=== PATIENT | female | born 1965 | race Caucasian/White ===

== ENCOUNTER → 2021-05-30 | Day surgery (SDC) | payer OTHER ==
[2021-05-28 08:50] LABS: BASOPHILS % 0.7 % (0.0-1.0); EOSINOPHILS # (AUTO) 0.1 (0.0-0.4); EOSINOPHILS % 3.2 % (0.0-6.0); HEMATOCRIT 32.6 % (34.2-44.1); LYMPHOCYTES # (AUTO) 1.6 (1.0-3.2); LYMPHOCYTES % 39.7 % (18.0-39.1); MEAN CORPUSCULAR HEMOGLOBIN 31.5 pg (28-32); MEAN CORPUSCULAR HGB CONC 30.7 g/dL (31-35); MEAN CORPUSCULAR VOLUME 102.8 fL (81-99); MONOCYTES # (AUTO) 0.5 (0.2-0.8); MONOCYTES % 11.2 % (4.4-11.3); NEUTROPHILS # (AUTO) 1.8 (2.1-6.9); PLATELET COUNT 283 x10e3/uL (140-360); RED BLOOD COUNT 3.17 x10e6/uL (3.6-5.1); RED CELL DISTRIBUTION WIDTH 13.3 % (11.7-14.4)
[2021-05-28 09:09] LABS: ANION GAP 11.3 mmol/L (8-16); CREATININE, SERUM 0.79 mg/dL (0.57-1.11); POTASSIUM 4.3 mmol/L (3.5-5.1)
[~2021-05-30] MED LIST: ACETAMINOPHEN 1000 MG/100 ML 100 ML IV ONE; BUPIVACAINE 0.25% 30ML SDV ONE; CYMBALTA30 MG; DEXAMETHASONE SOD PHOS INJ 4 MG/ML SDV ONE; ETODOLAC300 MG PO; FENTANYL CITRATE/PF 100MCG/2 ML INJ ONE; KETOROLAC TROMETHAMINE 30 MG/ML VIAL ONE; NEOSTIGMINE 1 MG/ML 10ML VIAL ONE; PLAQUENIL200 MG PO; SIMVASTATIN20 MG PO; SODIUM CHLORIDE 0.9% 50ML 100 ML ONE; TRAZODONE HCL50 MG PO; TREXIMET 85-501 EACH
[2021-05-30 11:55] VITALS: BP 146/81
== END | disposition home or self-care (01) ==
LOC: OR 06:37
PROVIDERS: ATTEND Podiatrist Foot Surgery
DX: M20.12 Hallux valgus (acquired), left foot (principal); M20.42 Other hammer toe(s) (acquired), left foot; M72.2 Plantar fascial fibromatosis; M19.072 Primary osteoarthritis, left ankle and foot; M06.9 Rheumatoid arthritis, unspecified; Z88.6 Allergy status to analgesic agent; Z01.810 Encounter for preprocedural cardiovascular examination; Z01.812 Encounter for preprocedural laboratory examination; Z01.818 Encounter for other preprocedural examination; Z20.822 Contact with and (suspected) exposure to COVID-19
CPT/HCPCS: 28285; 28296; 29893; 36415; 71046; 80048; 85025; 93005; C1713; J0131; J0690; J1100; J1885; J2710; J3010; U0002; 76000

== ENCOUNTER → 2021-07-11 | Day surgery (SDC) | payer OTHER ==
[2021-07-09 16:04] LABS: BASOPHILS % 0.4 % (0.0-1.0); EOSINOPHILS # (AUTO) 0.1 (0.0-0.4); EOSINOPHILS % 1.4 % (0.0-6.0); HEMATOCRIT 38.7 % (34.2-44.1); LYMPHOCYTES # (AUTO) 1.4 (1.0-3.2); MEAN CORPUSCULAR HEMOGLOBIN 31.5 pg (28-32); MEAN CORPUSCULAR VOLUME 101.6 fL (81-99); MONOCYTES # (AUTO) 0.6 (0.2-0.8); MONOCYTES % 10.9 % (4.4-11.3); NEUTROPHILS # (AUTO) 3.6 (2.1-6.9); NEUTROPHILS % 63.1 % (38.7-80.0); PLATELET COUNT 265 x10e3/uL (140-360); RED BLOOD COUNT 3.81 x10e6/uL (3.6-5.1); RED CELL DISTRIBUTION WIDTH 13.9 % (11.7-14.4)
[2021-07-09 16:23] LABS: ANION GAP 15.2 mmol/L (8-16); CALCIUM 8.9 mg/dL (8.4-10.2); CREATININE, SERUM 1.06 mg/dL (0.57-1.11); POTASSIUM 4.2 mmol/L (3.5-5.1)
[~2021-07-11] MED LIST changes: -ACETAMINOPHEN 1000 MG/100 ML 100 ML IV ONE; +AZITHROMYCIN250 MG PO; -BUPIVACAINE 0.25% 30ML SDV ONE; +BUPIVACAINE HCL 0.5% INJ 30 ML VIAL INJ ONE; +EPHEDRINE SULFATE INJ 50 MG/ML VIAL ONE; +LIDOCAINE HCL 2% LOCAL INJ 5 ML SDV VIAL INJ ONE; +MIDAZOLAM HCL 2 MG/2 ML VIAL ONE; +ONDANSETRON HCL INJ 2MG/ML 2ML 2 MG/ML VIAL ONE; +POVIDONE IODINE 0.05% 0.05 % ML PO ONE; +PROPOFOL IV EMULSION 10 MG/ML 20 ML VIAL ONE; +SEVOFLURANE INHAL SOLN 250 ML PEN BTL ONE
[2021-07-11 11:36] VITALS: BP 135/80
== END | disposition home or self-care (01) ==
LOC: OR 06:51
PROVIDERS: ATTEND Podiatrist Foot Surgery
DX: T84.84XA Pain due to internal orthopedic prosthetic devices, implants and grafts, initial encounter (principal); M20.11 Hallux valgus (acquired), right foot; M19.071 Primary osteoarthritis, right ankle and foot; M72.2 Plantar fascial fibromatosis; F41.9 Anxiety disorder, unspecified; Y83.8 Other surgical procedures as the cause of abnormal reaction of the patient, or of later complication, without mention of misadventure at the time of the procedure; Z88.6 Allergy status to analgesic agent; Z01.812 Encounter for preprocedural laboratory examination; Z01.818 Encounter for other preprocedural examination; Z20.822 Contact with and (suspected) exposure to COVID-19; Z79.899 Other long term (current) drug therapy; Z86.16 Personal history of COVID-19; Z87.01 Personal history of pneumonia (recurrent)
CPT/HCPCS: 20680; 28292; 29893; 36415; 71046; 80048; 85025; J0690; J1100; J1885; J2001; J2250; J2405; J2704; J2710; J3010; U0002; 76000

== ENCOUNTER → 2023-08-27 | Day surgery (SDC) | payer OTHER ==
[~2023-08-27] MED LIST changes: +BUPIVACAINE HCL 0.5% 10ML MPF VIAL INJ ONE; -BUPIVACAINE HCL 0.5% INJ 30 ML VIAL INJ ONE; +FLONASE ALLERG9.9 ML INH; +GLYCOPYRROLATE INJ 0.2 MG/ML VIAL ONE; +LACTATED RINGER'S 1,000 ML ONE; +NEURONTIN400 MG PO; -POVIDONE IODINE 0.05% 0.05 % ML PO ONE; -SODIUM CHLORIDE 0.9% 50ML 100 ML ONE; +WEGOVY1.7 MG/0.7
[2023-08-27] MEDS: FENTANYL CITRATE/PF 100MCG/2 ML INJ ONE ×4 (10:32→10:50)
[2023-08-27 11:40] VITALS: BP 121/76; PULSE 91; RESP 19; O2SAT 99
== END | disposition home or self-care (01) ==
LOC: OR 05:32
PROVIDERS: ATTEND Podiatrist Foot Surgery
DX: M19.071 Primary osteoarthritis, right ankle and foot (principal); M87.9 Osteonecrosis, unspecified; M20.41 Other hammer toe(s) (acquired), right foot; M20.42 Other hammer toe(s) (acquired), left foot; M67.471 Ganglion, right ankle and foot; M06.9 Rheumatoid arthritis, unspecified; F32.A Depression, unspecified; Z88.6 Allergy status to analgesic agent; Z01.810 Encounter for preprocedural cardiovascular examination; Z79.85 Long-term (current) use of injectable non-insulin antidiabetic drugs; Z79.899 Other long term (current) drug therapy
CPT/HCPCS: 28285 ×2; 28750; 88304; 93005; C1713 ×7; C1768; J0690; J1100; J1885; J2001; J2250; J2405; J2704; J2710; J3010; J7121; 76000